=== PATIENT | male | born 1965 ===

== ENCOUNTER 2022-06-13 14:18 | Inpatient (IN) | payer OTHER ==
[~2022-06-13] VITALS: Ht 162.6 cm; Wt 94.8 kg
[2022-06-14] MEDS ORDERED: ATORVASTATIN CA10 MG PO (08:21)
[2022-06-14] MEDS ORDERED: SEROQUEL25 MG PO (08:21)
[2022-06-14] MEDS ORDERED: WELLBUTRIN SR100 MG PO (08:21)
[2022-07-10] MEDS ORDERED: BUPROPION XL300 MG (08:29)
[2022-07-10] MEDS ORDERED: DICLOFENAC SODI75 MG (08:29)
[2022-07-10] MEDS ORDERED: FAMOTIDINE20 MG (08:29)
[2022-07-10] MEDS ORDERED: RAMIPRIL2.5 MG (08:29)
[2022-07-10] MEDS ORDERED: QUETIAPINE FUMA25 MG (08:29)
== END 2022-07-12 11:36 | disposition home or self-care (01) | DRG 330 ==
LOC: SURG 06-19 09:00 → SURH 07-10 05:30 → O/R 07-10 05:30 → SURH 07-10 10:45
PROVIDERS: ADMIT Colon & Rectal Surgery; ATTEND Colon & Rectal Surgery
PROC: 0DBP4ZZ Excision of Rectum, Percutaneous Endoscopic Approach (ICD-10-PCS; 2022-07-10)
PROC: 0DJD8ZZ Inspection of Lower Intestinal Tract, Via Natural or Artificial Opening Endoscopic (ICD-10-PCS; 2022-07-10)
PROC: 4A12X4Z Monitoring of Cardiac Electrical Activity, External Approach (ICD-10-PCS; 2022-07-10)
PROC: 0DTN4ZZ Resection of Sigmoid Colon, Percutaneous Endoscopic Approach (ICD-10-PCS; principal; 2022-07-10 05:15)
DX: K57.32 Diverticulitis of large intestine without perforation or abscess without bleeding (principal); K92.1 Melena; G47.39 Other sleep apnea; F32.A Depression, unspecified; E78.5 Hyperlipidemia, unspecified